=== PATIENT | female | born 1975 | race Caucasian/White ===

== ENCOUNTER 2018-05-19 11:39 | Day surgery (SDC) | payer OTHER ==
[~2018-05-19 11:39] MED LIST: CEFAZOLIN 1 GM INJ; SUCCINYLCHOLINE CHLORIDE 100 MG/5 ML SYG IV
[2018-05-19] MEDS ORDERED: HYDROmorphONE 1 MG/5 ML IV SYRINGE IV (12:30)
[2018-05-19] MEDS ORDERED: ATROPINE 1 MG/10 ML SYRINGE IV (12:30)
[2018-05-19] MEDS ORDERED: EPHEDrine SULFATE 50 MG/5 ML SYG IV (12:30)
[2018-05-19] MEDS ORDERED: FENTAnyl 50 MCG/ML VIAL IV ×2 (12:30)
[2018-05-19] MEDS ORDERED: morphine (1 MG/ML) 10ML SYRINGE IV ×3 (12:30)
[2018-05-19] MEDS ORDERED: hydrALAzine 20 MG INJ IV (12:30)
[2018-05-19] MEDS ORDERED: MIDAZOLAM 1 MG/ML 2 ML INJ IV (12:30)
[2018-05-19] MEDS ORDERED: DIPHENHYDRAMINE 50 MG INJ IV (12:30)
[2018-05-19] MEDS ORDERED: MEPERIDINE 25 MG INJ IV (12:30)
[2018-05-19] MEDS ORDERED: OXYCODONE/ACETAMINOPHEN (5/325) TAB PO ×2 (12:30)
[2018-05-19] MEDS ORDERED: LABETALOL HCL 20MG INJ IV (12:30)
[2018-05-19] MEDS ORDERED: LIDOCAINE 2% (SDV) 5 ML INJ (12:40)
[2018-05-19] MEDS ORDERED: PROPOFOL 20 ML (12:40)
[2018-05-19] MEDS ORDERED: FENTAnyl 50 MCG/ML VIAL (12:40)
[2018-05-19] MEDS ORDERED: GLYCOPYRROLATE 0.4 MG INJ (12:40)
[2018-05-19] MEDS ORDERED: ROCURONIUM 50 MG INJ (12:40)
[2018-05-19] MEDS ORDERED: NEOSTIGMINE 3 MG/3 ML SYRINGE (12:40)
[2018-05-19] MEDS ORDERED: MIDAZOLAM 1 MG/ML 2 ML INJ (12:40)
[2018-05-19 12:46] LABS: ADD MAN DIFF? NO
[2018-05-19 12:49] LABS: WHITE BLOOD COUNT 5.1 10^3/ul (4.8-10.8)
[2018-05-19 12:49] LABS: BASOPHILS % 0.2 % (0.0-2.0); EOSINOPHILS # 0.2 10^3/ul (0.0-0.5); EOSINOPHILS % 3.7 % (0.0-7.0); HEMATOCRIT 35.8 % (37.0-47.0); HEMOGLOBIN 12.1 g/dl (12.0-16.0); LYMPHOCYTES # 1.8 10^3/ul (0.8-2.9); LYMPHOCYTES % 35.8 % (15.0-51.0); MEAN CORPUSCULAR HEMOGLOBIN 31.8 pg (29.0-33.0); MEAN CORPUSCULAR HGB CONC 33.8 g/dl (32.0-37.0); MEAN CORPUSCULAR VOLUME 94.2 fl (82.0-101.0); MEAN PLATELET VOLUME 10.5 fl (7.4-10.4); MONOCYTE # 0.4 10^3/ul (0.3-0.9); MONOCYTES % 8.4 % (0.0-11.0); NEUTROPHIL # 2.6 10^3/ul (1.6-7.5); NEUTROPHILS % 51.7 % (39.0-77.0); PLATELET COUNT 313 10^3/UL (140-415); RED CELL DISTRIBUTION WIDTH 12.8 % (11.5-14.5)
[2018-05-19] MEDS: LACTATED RINGER'S 1,000 ML IV ×2 (13:04→15:16)
[2018-05-19] MEDS ORDERED: DEXAMETHASONE 4 MG/ML 1 ML INJ (13:27)
[2018-05-19] MEDS ORDERED: ONDANSETRON 4 MG INJ (13:28)
[2018-05-19] MEDS: HYDROmorphONE 1 MG/5 ML IV SYRINGE IV ×2 (15:09→15:17)
[2018-05-19] MEDS: ONDANSETRON 4 MG INJ IV (15:18)
== END 2018-05-19 17:29 | disposition home or self-care (01) ==
LOC: SDS 11:39
DX: Z30.2 Encounter for sterilization (principal)
CPT/HCPCS: 58670; 84702; 85025; 86850; 86900; 86901; 88300